=== PATIENT | female | born 1955 | race Caucasian/White ===

== ENCOUNTER → 2023-03-22 12:16 | Outpatient (CLI) | payer MEDICARE, OTHER, SELFPAY ==
--- NOTE | 2023-03-22 12:21 | DI.MRI.S_ITS ---
PROCEDURE: MR ANKLE RT WO CON INDICATIONS: OSTEOPOROSIS SCREENING/INSTABILITY OF RT ANKLE TECHNIQUE: Noncontrast sagittal T1 spin echo and T2 fast spin echo with fat saturation, axial proton density fast spin echo and T2 fast spin echo with fat saturation, coronal T1 spin echo and T2 fast spin echo with fat saturation through the ankle/hindfoot. COMPARISON: None. FINDINGS: Image quality: Excellent. Bones and joints: There is [id number] midfoot and hindfoot joint osteoarthritis most notably involving tibiotalar joint with 3 mm osteochondral injury involving lateral weight-bearing portion of talar dome with mild surrounding edema and mild edema involving adjacent lateral aspect of distal tibial plafond . No hindfoot coalitions. No osteochondral injuries of the talar dome. Small to moderate amount of tibiotalar and subtalar joint effusion is seen, no gross loose bodies. Small plantar and dorsal calcaneal enthesophytes are seen. Medial structures: The posterior tibialis, flexor digitorum longus, and flexor hallucis longus tendons are intact. Small amount of fluid distending flexor tendon sheath is seen The posterior tibial neurovascular bundle appears normal within the tarsal tunnel, without extrinsic mass effect. The deltoid ligament and spring ligament are grossly intact. Lateral structures: The anterior talofibular, calcaneofibular, and posterior talofibular ligaments appear thickened with intrasubstance T2 hyperintense signal.. More superiorly, the anterior and posterior tibiofibular ligaments appear intact, as is the intermalleolar ligament. The tibiofibular syndesmosis is normal in width at 2 mm or less. The peroneus longus and brevis tendons are mildly thickened with small to moderate amount of fluid surrounding tendon sheath at the level of lateral malleolus tip extending to the level of calcaneocuboid joint. Adjacent bony peroneal tubercle and retrotrochlear prominence are normal in size. The sinus tarsi demonstrates normal fatty signal, without edema, fibrosis, or cyst formation. Visualized sinus tarsi components (cervical ligament, interosseous talocalcaneal ligament, roots of the inferior extensor retinaculum) appear normal. The calcaneonavicular and calcaneocuboid components of the bifurcate ligament appear intact. The dorsal calcaneocuboid ligament appears intact. Anterior structures: The tibialis anterior, extensor hallucis longus, and extensor digitorum longus tendons appear intact. The dorsal talonavicular ligament appears intact. Posterior and plantar structures: Thickened distal Achilles tendon at its insertion on posterior calcaneus with mild surrounding edema is seen.. Medial and lateral bands of the plantar fascia are of normal thickness. No abductor digiti quinti muscle atrophy to suggest Leary neuropathy. IMPRESSION: 1. [id number]-kv-[id number] midfoot and hindfoot joint osteoarthritis most notably in tibiotalar joint with small osteochondral injuries in lateral weight-bearing portion of talar dome and adjacent distal tibial plafond. No fracture or dislocation. Small to moderate joint effusion, no gross loose bodies. 2. Low-grade tenosynovitis involving flexor tendons and peroneus tendons as above. No tendon rupture. 3. Distal Achilles tendinosis, no Achilles tendon rupture. 4. Medial ankle ligaments are intact. Low-grade sprain/intrasubstance partial-thickness tear involving anterior and posterior talofibular ligaments and calcaneofibular ligament. Dictated by: Duane Teran M.D. on 03/22/2023 at 13:45 Approved by: Duane Teran M.D. on 03/22/2023 at 13:53
--- NOTE | 2023-03-22 12:46 | DI.DEXA.S_ITS ---
Bone Density Report Name: NOLAN SILVA Age: 67 Sex: Female Ethnicity: White Date of : 1955 Indication: postmenopausal; screening for osteoporosis; parental hip fracture; history of glucocorticoids; Referring Provider: EDU AVENDANO Study: Bone densitometry was performed. Exam Date: March 22, 2023 Accession number: [id number] Bone Density: Region BMD T-score Z-score Classification AP Spine(L1-L4) 0.827 -2.0 -0.1 Osteopenia Femoral Neck (Left) 0.637 -1.9 -0.3 Osteopenia Total Hip (Left) 0.808 -1.1 0.2 Osteopenia Femoral Neck (Right) 0.605 -2.2 -0.6 Osteopenia Total Hip (Right) 0.758 -1.5 -0.2 Osteopenia Total Hip Mean 0.783 -1.3 0.0 Osteopenia World Health Organization criteria for BMD impression classify patients as: Normal (T-score at or above -1.0), Osteopenia (T-score between -1.0 and -2.5), or Osteoporosis (T-score at or below -2.5). 10-year Fracture Risk(1): Major Osteoporotic Fracture 31% Hip Fracture 5.0% Reported Risk Factors: [place] (), Neck BMD=0.605, BMI=27.3, parental fracture, glucocorticoids (1) FRAX(R) Version 3.08. Fracture probability calculated for an untreated patient. Fracture probability may be lower if the patient has received treatment. Impression: The patient has low bone mass, based on the Right Femoral Neck T-score. The patient has an estimated ten-year risk of hip fracture of 5% and an estimated ten-year risk of major fracture of 31%, based on the WHO FRAX algorithm. The patient has risk factors, including: parental hip fracture, history of glucocorticoid therapy. Discussion: BONE DENSITY IS LOW AT ONE OR MORE SKELETAL SITES. THE PATIENT'S BMD AND CLINICAL RISK FACTORS CONTRIBUTE TO THIS PATIENT'S HIGH RISK OF FRACTURE. This patient's lowest T-score is low at one or more skeletal sites. It meets the World Health Organization's (WHO) criteria for ?low bone mass? (T-score between -1.0 and -2.5). The patient's 10-year risk of hip fracture and 10 year risk of a major osteoporotic fracture as calculated by FRAX exceeds the threshold where pharmacological therapy is recommended by the National Osteoporosis Foundation (NOF). However, all treatment decisions require clinical judgment and consideration of individual patient factors, including patient preferences, comorbidities, previous drug use, risk factors not captured in the FRAX model (e.g., frailty, falls, vitamin D deficiency, increased bone turnover, interval significant decline in bone density) and possible under or overestimation of fracture risk by FRAX. The patient should follow a healthful lifestyle (good nutrition with adequate calcium and vitamin D, and appropriate weight-bearing exercise). Follow-Up: Consider a repeat BMD and Vertebral Fracture Assessment (VFA) exam in 2 years or sooner if medically necessary, to reassess this patient's status. Reported by: STEFAN MANNING M.D. on 03/22/2023 12:43:00 PM.
== END ==
PROVIDERS: Referring Provider Orthopaedic Surgery Foot and Ankle Surgery; Visit Provider Orthopaedic Surgery Foot and Ankle Surgery
DX: M81.0 Age-related osteoporosis without current pathological fracture (principal); M25.371 Other instability, right ankle; M19.071 Primary osteoarthritis, right ankle and foot; M25.474 Effusion, right foot; M65.9 Synovitis and tenosynovitis, unspecified; S93.491A Sprain of other ligament of right ankle, initial encounter; S93.411A Sprain of calcaneofibular ligament of right ankle, initial encounter
CPT/HCPCS: 73721; 77080

== ENCOUNTER 2023-05-12 17:24 | Emergency (ER) | payer MEDICARE, OTHER, SELFPAY ==
[2023-05-12 17:43] VITALS: BP 110/53; PULSE 82; RESP 18; TEMP 36.4; O2SAT 98; BMI 27.3
--- NOTE | 2023-05-12 19:07 | PC.NURSE ---
balance feels slightly off when standing. She denies headache. no vision changes. pupils are round and equally reactive to light and accommodation. No tenderness on her c-spine
--- NOTE | 2023-05-12 19:31 | DI.CT.S_ITS ---
PROCEDURE: CT HEAD/BRAIN WO CON INDICATIONS: fall with nausea and dizzyness TECHNIQUE: Noncontrast 4.5 mm thick angled axial sections acquired from the foramen magnum to the vertex, with coronal and sagittal reformats. For radiation dose reduction, the following was used: automated exposure control, adjustment of mA and/or kV according to patient size. COMPARISON: None. FINDINGS: Image quality: Excellent. CSF spaces: Basal cisterns are patent. No extra-axial fluid collections. Ventricles are normal in size and shape. Brain: No midline shift. No intracranial masses or hemorrhage. Bowling-white matter interface is normal. Skull and face: Calvarium and visualized facial bones are intact, without suspicious lesions. Parietal scalp contusion. Sinuses: Visualized sinuses and mastoids are clear. IMPRESSION: 1. No acute intracranial abnormalities. Dictated by: Luis Palmer M.D. on 05/12/2023 at 20:01 Approved by: Luis Palmer M.D. on 05/12/2023 at 20:02
--- NOTE | 2023-05-12 20:30 | ED_ITS ---
HPI - Head Injury General Chief complaint: Head Injury Stated complaint: sent by [facility]/fell hit head Source: patient Mode of arrival: Ambulatory History of Present Illness HPI Narrative: Patient here for fall/injury to the head. Sent here from urgent care. Patient states she was walking her 2 dogs and they turned her briskly and she lost her balance and fell backwards. No loss of consciousness. No nausea or vomiting. No vision changes. Feels a little dizzy. Not repeating questions. No numbness tingling or weakness. No prior history of head injury. Patient is not on any blood thinners. Denies any other injuries. Patient is walking independently. Not toxic Related Data Allergies Allergy/AdvReac Type Severity Reaction Status Date / Time Sulfa (Sulfonamide AdvReac Hives Verified 05/12/23 17:46 Antibiotics) Review of Systems Review of Systems Narrative: GENERAL: negative chills, fatigue, malaise, fever, sweats. HEENT: negative sinus pain, ear pain, sore throat RESPIRATORY: negative dyspnea, cough CARDIOVASCULAR: negative chest pain, palpitations GASTROINTESTINAL: negative nausea, vomiting, abdominal pain : negative dysuria, frequency, hematuria MUSCULOSKELETAL: Positive muscle or bony pain SKIN: negative rash, skin lesions NEUROLOGIC: negative weakness, numbness ROS Unobtainable: All systems reviewed & are unremarkable except as noted in HPI and below Patient History Social History Smoking Status: Former smoker Smoking Status: Former smoker alcohol intake frequency: 0-2 drinks per day Substance Use Type: does not use Exam Narrative Exam Narrative: GENERAL: in no distress, not toxic not dyspneic HEAD: Normocephalic. Mild tenderness to mid occiput but there is no edema. No bruising. No crepitus or step-off. No edema. EYES: Pupils equal round ENT: Mucous membranes moist. NECK: Trachea midline. No midline tenderness or step-off of the cervicothoracic or lumbar spine. CARDIOVASCULAR: Regular rate and rhythm without murmurs RESPIRATORY: Clear to auscultation. Breath sounds equal bilaterally. No wheezes, rales, or rhonchi. GASTROINTESTINAL: Abdomen soft, non-tender EXTREMITIES: No gross deformities. Moving all 4 extremities without any discomfort. BACK: No flank tenderness. NEURO: AOx4. Clear speech no facial droop steady self gait no ataxia and nonantalgic. 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 SKIN: Warm and dry PSYCH: Not anxious, is cooperative Initial Vital Signs Initial Vital Signs: Vital Signs Temperature 97.5 F L 05/12/23 17:43 Pulse Rate 82 05/12/23 17:43 Respiratory Rate 18 05/12/23 17:43 Blood Pressure 110/53 L 05/12/23 17:43 Pulse Oximetry 98 05/12/23 17:43 Oxygen Delivery Method Room Air 05/12/23 17:43 Course Orders Ordered: ED Orders 05/12/23 19:31 CT head/brain wo con Stat Vital Signs Vital signs: Vital Signs - 8 hr 05/12/23 17:43 Temperature 97.5 F L Pulse Rate 82 Respiratory Rate 18 Blood Pressure 110/53 L Pulse Oximetry 98 Oxygen Delivery Method Room Air MDM - Head Injury MDM Narrative Medical decision making narrative: Patient here for fall/injury to the head. Sent here from urgent care. Patient states she was walking her 2 dogs and they turned her briskly and she lost her balance and fell backwards. No loss of consciousness. No nausea or vomiting. No vision changes. Feels a little dizzy. Not repeating questions. No numbness tingling or weakness. No prior history of head injury. Patient is not on any blood thinners. Denies any other injuries. Patient is walking independently. Not toxic After history and exam CT head MDM CC: Head injury Complicating co-morbidities: None Data collected from: Patient Medical records reviewed: Not seen here recently for this complaint Differential considered: Includes but not limited to closed head injury concussion intracranial bleed skull fracture Exam documented above, pertinent findings include: Mild tenderness to occipital scalp Imaging studies independently reviewed: CT head no acute finding Consultations: None required Treatments: None required Re-evaluations: Spoke with patient exam findings and CT findings. At this time reassuring. Return precautions reviewed with her. She desires discharge home. Not toxic at discharge. No medications required. Pain is controlled. Patient neurovascularly intact. Discussion: Appropriate for discharge home. Patient neurovascularly intact. Head injury instructions reviewed with her. CT scan imaging and exam is reassuring. Pain is controlled. Patient desires discharge home. Return precautions reviewed with her. Diagnosis: Acute head injury Discharge Plan Departure Patient Disposition: Home Clinical Impression: Acute head injury, Contusion of scalp Instructions: DI for Concussion, DI for Closed Head Injury Activity Restrictions/Additional Instructions: Please see family doctor in a week for re-evaluation. Today's exam and CT scan imaging of the head is reassuring. No acute injury on the CT scan imaging. May take Tylenol for headache or discomfort. Return if worse if any questions or concerns. Referrals: Miscellaneous,Doctor, MD [Primary Care Provider] - Stand Alone Forms: Patient Portal/API
== END 2023-05-12 20:34 | disposition home or self-care (01) ==
PROVIDERS: Emergency Provider Emergency Medicine
DX: S00.03XA Contusion of scalp, initial encounter (principal); S09.90XA Unspecified injury of head, initial encounter; W18.30XA Fall on same level, unspecified, initial encounter
CPT/HCPCS: 70450; 99283; 99284

== ENCOUNTER → 2023-09-02 13:49 | Outpatient (CLI) | payer MEDICARE, OTHER, SELFPAY ==
[2023-09-02 15:16] LABS: Hemoglobin A1C% w Est Avg Glu 5.9 % (4.0-6.0)
[2023-09-02 16:12] LABS: TSH w/ Reflex to FT4 0.68 uIU/mL (0.47-4.68)
== END ==
PROVIDERS: PCP Family Medicine; Referring Provider Family Medicine; Visit Provider Family Medicine
DX: R73.01 Impaired fasting glucose (principal); E03.9 Hypothyroidism, unspecified; N95.2 Postmenopausal atrophic vaginitis
CPT/HCPCS: 36415; 83036; 84443

== ENCOUNTER → 2023-12-31 14:39 | Outpatient (CLI) | payer MEDICARE, OTHER, SELFPAY ==
[2023-12-31 15:33] LABS: Hemoglobin A1C% w Est Avg Glu 5.5 % (4.0-6.0)
[2023-12-31 15:52] LABS: Alanine Aminotransferase 24 IU/L (<35); Albumin Globulin Ratio 1.5 (1.0-2.8); Alkaline Phosphatase 57 U/L (38-126); Aspartate Aminotransferase 26 IU/L (14-36); BUN Creatinine Ratio 20.9 (6-22); Bilirubin Total 0.7 mg/dL (0.2-1.3); Blood Urea Nitrogen 18 mg/dL (7-17); Calcium 9.7 mg/dL (8.4-10.2); Carbon Dioxide 26 mmol/L (22-32); Chloride 106 mmol/L (98-107); Cholesterol 167 mg/dL (140-199); Estimated Glomerular Filt Rate > 60 mL/min (>60); Globulin 2.7 g/dL (1.7-4.1); Glucose 98 mg/dL (80-110); HDL Cholesterol 67 mg/dL (40-60); HEMOLYSIS < 15 (0-50); LDL Cholesterol Calculated 77 mg/dL (<100); Sodium 139 mmol/L (137-145); Total Protein 6.7 g/dL (6.3-8.2); Triglycerides 115 mg/dL (35-150)
[2023-12-31 16:23] LABS: TSH w/ Reflex to FT4 3.52 uIU/mL (0.47-4.68)
== END ==
PROVIDERS: PCP Family Medicine; Referring Provider Family Medicine; Visit Provider Family Medicine
DX: Z00.00 Encounter for general adult medical examination without abnormal findings (principal); R73.01 Impaired fasting glucose; E03.9 Hypothyroidism, unspecified; G43.909 Migraine, unspecified, not intractable, without status migrainosus
CPT/HCPCS: 36415; 80053; 80061; 83036; 84443

== ENCOUNTER → 2024-07-04 14:43 | Outpatient (CLI) | payer MEDICARE, OTHER, SELFPAY ==
[2024-07-04 15:10] LABS: Hemoglobin A1C% w Est Avg Glu 5.4 % (4.0-6.0)
[2024-07-04 15:53] LABS: TSH w/ Reflex to FT4 2.23 uIU/mL (0.47-4.68)
[2024-07-05 10:01] LABS: Hep C Virus Ab w/Reflex Quant NEGATIVE s/c (NEGATIVE)
== END ==
PROVIDERS: PCP Family Medicine; Referring Provider Family Medicine; Visit Provider Family Medicine
DX: Z11.59 Encounter for screening for other viral diseases (principal); R73.01 Impaired fasting glucose; E03.9 Hypothyroidism, unspecified
CPT/HCPCS: 36415; 83036; 84443; 86803

== ENCOUNTER → 2024-08-29 10:51 | Outpatient (CLI) | payer MEDICARE, OTHER, SELFPAY ==
--- NOTE | 2024-08-29 10:53 | DI.MRI.S_ITS ---
PROCEDURE: MR KNEE RT WO CON INDICATIONS: TEAR OF MEDIAL MENISCUS RT KNEE TECHNIQUE: Noncontrast sagittal PD fast spin echo and T2 fast spin echo with fat saturation, sagittal 3-D FLASH with fat saturation; coronal T1 spin echo and PD fast spin echo with fat saturation, and axial PD fast spin echo with fat saturation through the knee. COMPARISON: None. FINDINGS: Image quality: Excellent. Menisci: In the medial meniscus, there is horizontal longitudinal tear of the posterior horn, extending to the medial meniscus body as a complex flap tear. There is a large meniscus flap extending from the medial meniscus body into the inferior gutter, measuring approximately 5 mm. There is additional multiple parameniscal cyst about the posterior horn, measuring up to 1.3 cm, at the junction of the posterior horn and the posterior root. Mild extrusion of the medial meniscus body. In the lateral meniscus, there is low-grade interstitial tear of the anterior root. No extrusion of the lateral meniscus body. Cruciate ligaments: The anterior and posterior cruciate ligaments appear intact. Medial structures: Full-thickness tear of the medial patellofemoral ligament about the femoral insertion. Full-thickness tear of the proximal MCL, without retraction. Lateral structures: The lateral collateral ligament, long and short heads of the biceps femoris tendon appear intact. The popliteus tendon appears normal; the popliteofibular ligament appears intact. The posterosuperior and anteroinferior popliteomeniscal fascicles appear intact. The arcuate and fabellofibular ligaments appear intact, on either side of the lateral inferior geniculate artery. Iliotibial band appears normal. Anterior structures: The quadriceps and the patellar tendon are unremarkable. The lateral patellofemoral ligament is intact. Alignment of the patellofemoral compartment is anatomic. No Hoffa's fat pad edema. Bones and cartilage: There is small area of full-thickness chondral loss in the superior aspect of the median ridge, with moderate subchondral cystic changes and marrow edema. Full-thickness low signal chondral fissuring of the central trochlea. There is mild marrow edema of the peripheral aspect of the medial femoral condyle and the medial tibial plateau, favor reactive. The cartilage of the medial compartment is grossly well maintained. The cartilage of the lateral compartment is well maintained as well. Extensive subchondral cystic changes about the tibial eminence with mild marrow edema, reactive. Mild degenerative changes of the proximal tibiofibular articulation with mild subchondral marrow edema in the fibular head. Joint space: Small knee effusion. No popliteal cyst. Popliteal vasculature is unremarkable. No intra-articular body. IMPRESSION: 1. Tear of the medial meniscus with a large meniscus flap and large parameniscal cyst. Subjacent mild reactive marrow edema. 2. Low-grade tear of the lateral meniscus. 3. Full-thickness tear of the medial patellofemoral ligament about the femoral insertion. 4. Full-thickness tear of the proximal MCL. 5. Mild, patellofemoral compartment predominant chondrosis. Dictated by: Bernadette Rider M.D. on 08/29/2024 at 12:13 Approved by: Bernadette Rider M.D. on 08/29/2024 at 12:29
== END ==
PROVIDERS: PCP Family Medicine; Referring Provider Orthopaedic Surgery Foot and Ankle Surgery; Visit Provider Orthopaedic Surgery Foot and Ankle Surgery
DX: S83.241A Other tear of medial meniscus, current injury, right knee, initial encounter (principal); S83.281A Other tear of lateral meniscus, current injury, right knee, initial encounter; S76.111A Strain of right quadriceps muscle, fascia and tendon, initial encounter; S83.411A Sprain of medial collateral ligament of right knee, initial encounter; M22.41 Chondromalacia patellae, right knee
CPT/HCPCS: 73721

== ENCOUNTER → 2025-01-02 12:11 | Outpatient (CLI) | payer MEDICARE, OTHER, SELFPAY ==
[2025-01-02 13:13] LABS: Hematocrit 41.4 % (36-46); Hemoglobin 14.2 g/dL (12.0-16.0); Mean Corpuscular HGB Conc 34.4 % (30-36); Mean Corpuscular Hemoglobin 30.4 PG (26-34); Mean Corpuscular Volume 88.2 fL (80-100); Platelet Count 270 X10^3/uL (150-400); Red Blood Cell Count 4.69 X10^6/uL (4.0-5.2); Red Cell Distribution Width 13.5 % (11.6-14.8)
[2025-01-02 13:23] LABS: Hemoglobin A1C% w Est Avg Glu 5.1 % (4.0-6.0)
[2025-01-02 13:56] LABS: Alanine Aminotransferase 24 IU/L (<35); Albumin 4.4 g/dL (3.5-5.0); Albumin Globulin Ratio 1.8 (1.0-2.8); Alkaline Phosphatase 61 U/L (38-126); Aspartate Aminotransferase 29 IU/L (14-36); BUN Creatinine Ratio 14.8 (6-22); Bilirubin Total 0.8 mg/dL (0.2-1.3); Blood Urea Nitrogen 13 mg/dL (7-17); Calcium 9.6 mg/dL (8.4-10.2); Carbon Dioxide 26 mmol/L (22-32); Chloride 105 mmol/L (98-107); Cholesterol 181 mg/dL (140-199); Estimated Glomerular Filt Rate > 60 mL/min (>60); Globulin 2.4 g/dL (1.7-4.1); Glucose 84 mg/dL (80-110); HDL Cholesterol 73 mg/dL (40-60); HEMOLYSIS < 15 (0-50); LDL Cholesterol Calculated 88 mg/dL (<100); Potassium 4.1 mmol/L (3.4-5.1); Sodium 140 mmol/L (137-145); Total Protein 6.8 g/dL (6.3-8.2); Triglycerides 102 mg/dL (35-150)
[2025-01-02 14:24] LABS: TSH w/ Reflex to FT4 5.42 uIU/mL (0.47-4.68)
[2025-01-02 14:53] LABS: Free T4, Direct Thyroxine 1.38 ng/dL (0.78-2.19)
== END ==
PROVIDERS: PCP Family Medicine; Referring Provider Family Medicine; Visit Provider Family Medicine
DX: Z00.00 Encounter for general adult medical examination without abnormal findings (principal); E03.9 Hypothyroidism, unspecified; R73.01 Impaired fasting glucose; F32.A Depression, unspecified; G43.909 Migraine, unspecified, not intractable, without status migrainosus; L92.0 Granuloma annulare
CPT/HCPCS: 36415; 80053; 80061; 83036; 84439; 84443; 85027

== ENCOUNTER → 2025-03-23 14:09 | Outpatient (CLI) | payer MEDICARE, OTHER, SELFPAY ==
--- NOTE | 2025-03-23 14:10 | DI.RAD.S_ITS ---
PROCEDURE: XR DEXA AXIAL SKELETON INDICATIONS: Screening for osteoporosis in asym. postmenopausal 69F COMPARISON: [facility], , XR DEXA AXIAL SKELETON, 03/22/2023, 12:33. FINDINGS: Lumbar Spine: Bone mineral density 0.782 g/cm2, T score new 2.4, decreased by 5.4%. Left Femoral Neck: Bone mineral density 0.6 I g/cm2, T score -2.1. Left Hip: Bone mineral density 0.801 g/cm2, T score -1.2, no significant change compared to prior. Fracture Risk Calculation (when applicable): 10-year fracture risk of a major osteoporotic fracture 20 percent and of a hip fracture 4.2 percent. (T score greater or equal to -1.0 to: NORMAL) (T score from -1.1 to -2.4: OSTEOPENIA) (T score less than or equal to -2.5: OSTEOPOROSIS) IMPRESSION: Low bone mineral density (osteopenia) by WHO classification. Follow-up guidelines as follows: Osteoporosis: Consider a repeat DEXA and Vertebral Fracture Assessment (VFA) exam in 2 years or sooner if medically necessary, to reassess this patient's status. Osteopenia: Consider a repeat DEXA in 2-3 years to reassess this patient's status, or if there is a new clinical indication. Normal: Consider a repeat DEXA in 5 years or sooner, or if there is a new clinical indication. All treatment decisions require clinical judgment and consideration of individual patient factors, including patient preferences, comorbidities, previous drug use, risk factors not captured in the FRAX model (e.g., frailty, falls, vitamin D deficiency, increased bone turnover, interval significant decline in bone density ) and possible under- or over-estimation of fracture risk by FRAX. In addition, the NOF Guide recommends that FDA-approved medical therapies be considered in postmenopausal women and men age >= 50 years with a: * Hip or vertebral (clinical or morphometric) fracture * T-score of <=-2.5 at the spine or hip * Ten-year fracture probability by FRAX of >= 3% for hip fracture or >=20% for major osteoporotic fracture. Dictated by: Que Saavedra M.D. on 03/24/2025 at 15:02 Approved by: Que Saavedra M.D. on 03/24/2025 at 15:03
--- NOTE | 2025-03-23 14:10 | DI.MG.S_ITS ---
MM screening mammo BI: 03/23/2025. BI-RADS: 1 CLINICAL: 69-year old female for bilateral screening mammogram. Tyrer-Cuzick lifetime risk of 6.1%. No personal or first-degree family history of breast cancer. PRIOR EXAMS 09/29/2023. MAMMOGRAPHY TECHNIQUE: 2D and 3D (tomosynthesis) digital mammographic views obtained, with additional images as needed for full coverage. Current study was also evaluated with a Computer Aided Detection (CAD) system. DENSITY B. There are scattered areas of fibroglandular density. MAMMOGRAPHY FINDINGS Bilateral: No suspicious mass, asymmetry, microcalcification, or other abnormality seen. IMPRESSION: * No evidence of malignancy. RECOMMENDATIONS Bilateral * Annual screening mammography. OVERALL ASSESSMENT CATEGORY BI-RADS-1: Negative. The [employer] recommends annual screening mammography beginning at age 40 for women with average risk of breast cancer. ELECTRONICALLY SIGNED: Jorgito Redmond M.D. on 03/23/2025 at 05:45:26 PM PT Interpreting Station ID: [id number]
== END ==
PROVIDERS: PCP Family Medicine; Referring Provider Family Medicine; Visit Provider Family Medicine
DX: M85.89 Other specified disorders of bone density and structure, multiple sites (principal); Z12.31 Encounter for screening mammogram for malignant neoplasm of breast; Z00.00 Encounter for general adult medical examination without abnormal findings; M81.0 Age-related osteoporosis without current pathological fracture; Z13.820 Encounter for screening for osteoporosis; E03.9 Hypothyroidism, unspecified; R73.01 Impaired fasting glucose; G43.909 Migraine, unspecified, not intractable, without status migrainosus; L92.0 Granuloma annulare; F32.A Depression, unspecified; Z78.0 Asymptomatic menopausal state
CPT/HCPCS: 77063; 77067; 77080

== ENCOUNTER 2025-09-03 19:24 | Emergency (ER) | payer MEDICARE, OTHER, SELFPAY ==
[2025-09-03] VITALS (8 sets, daily range): BP systolic 128–151; BP diastolic 59–84; PULSE 75–94; RESP 12–24; TEMP 36.6; O2SAT 93–100; BMI 29.0
--- NOTE | 2025-09-03 19:37 | EKG_ITS ---
[facility]
--- NOTE | 2025-09-03 20:50 | ED_ITS ---
HPI - Arrhythmia/Palpitations
--- NOTE | 2025-09-03 20:50 | ED.ARRPALP ---
HPI - Arrhythmia/Palpitations General Chief Complaint: Arrhythmia/Palpitations Stated Complaint: Low hr (dropping) x 2 hrs Time Seen by Provider: 09/03/25 20:25 Source: patient Mode of arrival: Ambulatory History of Present Illness HPI narrative: 70-year-old female pre of depression Graves disease migraine currently started on Nurtec presents with heart palpitations today while reading her book for which she wears an [employer] watch and in noticed the heart rate was in the 120s to 130s feeling lightheaded at the time it only happened once but it has since resolved. She got concerned after Goog[employer] came in to be evaluated. She denies any chest pain headache dizziness lightheadedness leg pain leg swelling did notice her right leg is little bit more swollen than the left and she did travel recently back month ago. Other than what is stated 14 point review of systems negative. Related Data Home Medications ?Medication ?Instructions ?Recorded ?Confirmed hydroxychloroquine 200 mg tablet 200 mg PO BID 01/02/25 04/30/25 meloxicam 7.5 mg tablet 7.5 mg PO DAILY 04/30/25 04/30/25 Previous Rx's ?Medication ?Instructions ?Recorded duloxetine 20 mg capsule,delayed 20 mg PO DAILY #90 caps 08/31/23 release estradiol 0.01% (0.1 mg/gram) 1 appful vaginal 3XW #30 grams 10/01/23 vaginal cream rizatriptan 10 mg disintegrating See Rx Instructions PO .COMPLEX 09/18/24 tablet #30 tabs levothyroxine 200 mcg tablet 200 mcg PO DAILY #90 tabs 01/02/25 levothyroxine 25 mcg tablet 25 mcg PO DAILY #90 tabs 01/02/25 trazodone 50 mg tablet 50 mg PO BEDTIME PRN insomnia #90 01/02/25 tabs rimegepant 75 mg disintegrating 75 mg PO Q OTHER DAY migraine 01/03/25 tablet (Nurtec ODT) prevention #45 tabs alendronate 35 mg tablet 35 mg PO QWEEK #90 tabs 04/30/25 duloxetine 30 mg capsule,delayed 30 mg PO DAILY #90 caps 05/14/25 release nortriptyline 50 mg capsule 50 mg PO BEDTIME #90 caps 07/20/25 Allergies Allergy/AdvReac Type Severity Reaction Status Date / Time Sulfa (Sulfonamide AdvReac Hives Verified 09/03/25 19:33 Antibiotics) Review of Systems Review of Systems ROS Unobtainable: All systems reviewed & are unremarkable except as noted in HPI and below Patient History Medical History (Updated 09/03/25 @ 22:47 by Kurtis Gomez, ) Osteopenia Migraine headache Encounter for subsequent annual wellness visit (AWV) in Medicare patient Insomnia Depression, unspecified Lichen sclerosus Granuloma annulare IFG (impaired fasting glucose) Atrophic vaginitis Hypothyroidism alcohol intake frequency: 0-2 drinks per day Exam Narrative Exam Narrative: GENERAL: [70] year old patient appears stated age. Well-developed patient, in mild distress. HEAD: Atraumatic. Normocephalic. EYES: Pupils equal round and reactive. Extraocular motions intact. No scleral icterus. No injection or drainage. ENT: Nose without bleeding, purulent drainage. Throat without erythema, tonsillar hypertrophy or exudate. Airway patent. NECK: Trachea midline. Non tender CARDIOVASCULAR: Regular rate and rhythm without murmurs, gallops, or rubs. RESPIRATORY: Clear to auscultation. Breath sounds equal bilaterally. No wheezes, rales, or rhonchi. GASTROINTESTINAL: Abdomen soft, non-tender, nondistended. EXTREMITIES: Right calf increased girth but no tenderness to palpation compared to L calf , motor sensory intact bilaterally +2 DP +2 PT cap refill less than 2 seconds bilateral lower extremity BACK: Nontender without deformity or crepitance. No flank tenderness. NEURO: AOx3. SKIN: No rash or erythema of visible areas Initial Vital Signs Initial Vital Signs: Vital Signs Temperature 97.8 F 09/03/25 19:33 Pulse Rate 94 H 09/03/25 19:33 Respiratory Rate 16 09/03/25 19:33 Blood Pressure 128/59 L 09/03/25 19:33 Pulse Oximetry 100 09/03/25 19:33 Oxygen Delivery Method Room Air 09/03/25 19:33 Course Orders Ordered: ED Orders 09/03/25 19:37 EKG-12 Lead Stat Vital Signs Vital signs: Vital Signs - 8 hr 09/03/25 19:33 Temperature 97.8 F Pulse Rate 94 H Respiratory Rate 16 Blood Pressure 128/59 L Pulse Oximetry 100 Oxygen Delivery Method Room Air MDM - Arrhythmia/Palpitations Imaging Data Chest x-ray: Radiologist's Impresson: [address] [id number] XRay Report Signed Patient: Camelia Limon MR#: [id number] : 1955 Acct:[id number] Age/Sex: 70 / F Date of Service: 09/03/25 Loc: ED Accession Number: [id number] Procedure: XR chest 1V Ordering Provider: Kurtis Gomez D.O. PROCEDURE: XR CHEST 1V INDICATIONS: sob TECHNIQUE: One view of the chest was acquired. COMPARISON: None. FINDINGS AND IMPRESSION: No dense airspace disease or pleural effusion on this single view study. Normal heart size. Degenerative osseous findings. Dictated by: Mc Martinez M.D. on 09/03/2025 at 22:06 Approved by: Mc Martinez M.D. on 09/03/2025 at 22:07 Extremity x-ray #1: Radiologist's Impresson: [address] [id number] Ultrasound Report Signed Patient: Camelia Limon MR#: [id number] : 1955 Acct:[id number] Age/Sex: 70 / F Date of Service: 09/03/25 Loc: ED Accession Number: [id number] Procedure: US periph venous low extrem rt Ordering Provider: Kurtis Gomez D.O. PROCEDURE: US PERIPH VENOUS LOW EXTREM RT INDICATIONS: R leg pain TECHNIQUE: Real-time imaging, as well as color and pulse Doppler interrogation, were performed of the lower extremity deep veins from the inguinal ligament to the popliteal fossa, with documentation of the visualized calf veins. COMPARISON: None. FINDINGS: The common femoral, femoral, popliteal, and the visualized calf veins are normally compressible, and free of intraluminal thrombus. Color and pulse Doppler demonstrate normal phasic intraluminal flow. There is normal augmentation response to distal compression maneuver. IMPRESSION: No findings of lower extremity deep venous thrombosis. Dictated by: Mc Martinez M.D. on 09/03/2025 at 22:34 Approved by: Mc Martinez M.D. on 09/03/2025 at 22:34 ECG Data Interpretation: NSR HR 86 KS 128 QRS [address]-t wave change No previous EKG to compare MDM Narrative Medical decision making narrative: All lab work, vital signs, nurse triage note, medication list, previous ER visits, and all imaging studies reviewed. Ultrasound showed no DVT. Chest x-ray showed no dense airspace disease or pleural effusion. WBC 7.7 hemoglobin 13.5 platelet 273 sodium 136 potassium 3.7 chloride 105 CO2 24 BUN 21 creatinine 0.8 glucose 103 magnesium 1.9 on less than 0.012 BNP 49 TSH 0.870 EKG showed no normal sinus rhythm. Differential diagnosis anemia electrolyte derangement thyroid anxiety Discharge Plan Departure Patient Disposition: Home Clinical Impression: Heart palpitations Instructions: DI for Palpitations Activity Restrictions/Additional Instructions: Return with new or worsening symptoms. Follow up with PCP this week for further evaluation. Prescriptions: No Action estradiol 0.01 % (0.1 mg/gram) cream 1 appful vaginal 3XW Qty: 30 11RF Rx Instructions: compound estradiol cream. 0.1% vaginally 3 times weekly prn. Rx at [facility] is 0.0125% due to not being able to copy retail exactly rizatriptan 10 mg tablet,disintegrating See Rx Instructions PO .COMPLEX Qty: 30 5RF Rx Instructions: take 1 tab at onset of headache; if no relief may repeat 1 tab after at least 2 hrs; max = 3 tabs/24 hr PO Nurtec ODT 75 mg tablet,disintegrating 75 mg PO Q OTHER DAY Qty: 45 3RF duloxetine 30 mg capsule,delayed release(DR/EC) 30 mg PO DAILY Qty: 90 3RF nortriptyline 50 mg capsule 50 mg PO BEDTIME Qty: 90 1RF duloxetine 20 mg capsule,delayed release(DR/EC) 20 mg PO DAILY Qty: 90 3RF hydroxychloroquine 200 mg tablet 200 mg PO BID trazodone 50 mg tablet 50 mg PO BEDTIME PRN (Reason: insomnia) Qty: 90 3RF levothyroxine 25 mcg tablet 25 mcg PO DAILY Qty: 90 3RF Rx Instructions: 225 mcg total levothyroxine 200 mcg tablet 200 mcg PO DAILY Qty: 90 3RF Rx Instructions: 225 mcg total meloxicam 7.5 mg tablet 7.5 mg PO DAILY alendronate 35 mg tablet 35 mg PO QWEEK Qty: 90 3RF Referrals: Bryant Elias DO [Primary Care Provider, Family Practice] Stand Alone Forms: Patient Portal/API
--- NOTE | 2025-09-03 20:59 | DI.RAD.S_ITS ---
PROCEDURE: XR CHEST 1V
--- NOTE | 2025-09-03 21:00 | DI.US.S_ITS ---
PROCEDURE: US PERIPH VENOUS LOW EXTREM RT
[2025-09-03 21:16] LABS: Add Manual Diff / Slide Review NO; Hematocrit 39.1 % (36-46); Hemoglobin 13.5 g/dL (12.0-16.0); Lymphocytes Absolute Auto 1800 /uL (1100-4500); Mean Corpuscular HGB Conc 34.6 % (30-36); Mean Corpuscular Hemoglobin 29.7 PG (26-34); Mean Corpuscular Volume 85.8 fL (80-100); Platelet Count 273 X10^3/uL (150-400)
[2025-09-03 21:20] LABS: Alanine Aminotransferase 21 IU/L (<35); Albumin 4.3 g/dL (3.5-5.0); Albumin Globulin Ratio 1.5 (1.0-2.8); Alkaline Phosphatase 65 U/L (38-126); Blood Urea Nitrogen 21 mg/dL (7-17); Calcium 9.2 mg/dL (8.4-10.2); Carbon Dioxide 24 mmol/L (22-32); Chloride 105 mmol/L (98-107); Estimated Glomerular Filt Rate > 60 mL/min (>60); Globulin 2.9 g/dL (1.7-4.1); Glucose 103 mg/dL (70-99); HEMOLYSIS 19 (0-50); Lipase 151 U/L (23-300); Magnesium 1.9 mg/dL (1.6-2.3); Potassium 3.7 mmol/L (3.4-5.1); Sodium 136 mmol/L (137-145); Total Protein 7.2 g/dL (6.3-8.2)
[2025-09-03 21:32] LABS: NT-proBNP (BNP-Adult 18+) 49 pg/mL (<125); Troponin I < 0.012 ng/mL (0.01-0.034)
[2025-09-03 21:58] LABS: Thyroid Stimulating Hormone 0.870 uIU/mL (0.47-4.68)
[2025-09-04 22:41] LABS: Labcorp Creatine Kinase MB 2.3 ng/mL (0.0-5.3)
== END 2025-09-03 22:53 | disposition home or self-care (01) ==
PROVIDERS: Emergency Provider Family Medicine; PCP Family Medicine
DX: R00.2 Palpitations (principal); M79.604 Pain in right leg; R06.02 Shortness of breath
CPT/HCPCS: 36415; 71045; 80053; 82553; 83690; 83735; 83880; 84443; 84484; 85025; 93005; 93971; 99283; 99284

== ENCOUNTER → 2025-10-11 12:50 | Outpatient (CLI) | payer MEDICARE, OTHER, SELFPAY | LOC: CAR 12:51 | PROVIDERS: PCP Family Medicine; Referring Provider Family Medicine; Visit Provider Family Medicine | DX: R00.0 Tachycardia, unspecified (principal) | CPT/HCPCS: 93246 ==